=== PATIENT | female | born 1940 | race African-American/Black ===

== ENCOUNTER 2018-01-23 21:25 | Emergency (ER) | payer MEDICARE, OTHER ==
[~2018-01-23 21:25] MED LIST: Sodium Chloride 0.9% 1,000 ML BAG ONE; Sodium Chloride 0.9% 500 ML BAG ONE
--- NOTE | 2018-01-23 22:18 | RAD ---
PORTABLE AP CHEST X-RAY: 01/23/18 HISTORY: Fever. FINDINGS: Compared to study on 02/14/13. FINDINGS: The cardiac silhouette is magnified by projection. The pulmonary vasculature is within normal limits. Calcified granuloma is again seen at the left lung base. The lungs are otherwise clear. There has be en no interval change from prior study. IMPRESSION: No acute cardiopulmonary process. POS: [facility]
[2018-01-23 22:28] LABS: ALT (SGPT) 14 U/L (8-55); AST (SGOT) 19 U/L (5-34); Alkaline Phosphatase 92 U/L (40-150); Anion Gap 17 mmol/L (10-20); BUN (Urea Nitrogen) 21 mg/dL (9.8-20.1); Band 4 % (5-11); Bilirubin, Total 0.3 mg/dL (0.2-1.2); Calc. Creatinine Clearance 0 mL/min (70-130); Carbon Dioxide 25 mmol/L (23-31); Chloride 105 mmol/L (98-107); Estimated GFR-MDRD 57; Globulin 3.5 g/dL (2.4-3.5); Glucose 99 mg/dL (83-110); Hemoglobin 12.2 g/dL (12.0-16.0); Lymphocytes 7 % (21-51); MDiff Complete? YES; Mean Corpuscular HGB CONC 32.9 g/dL (32.0-36.0); Mean Corpuscular Hemoglobin 29.5 pg (27.0-31.0); Mean Corpuscular Volume 89.5 fL (78.0-98.0); Mean Platelet Volume 8.4 fL (7.4-10.4); Monocytes 4 % (0-10); Neutrophil 82 % (42-75); PLT Morphology Comment Appears Adequate; Platelet Count 233 thou/uL (130-400); Potassium 3.8 mmol/L (3.5-5.1); Protein, Total 7.5 g/dL (6.0-8.3); RBC Distribution Width 14.2 % (11.5-14.5); RBC Morphology Normal; Reactive Lymphocytes 3 % (0-10); Red Blood Cell (RBC) Count 4.13 mill/uL (4.20-5.40); Sodium 143 mmol/L (136-145); White Blood Cell (WBC) Count 15.5 thou/uL (4.8-10.8)
[2018-01-23 23:45] LABS: Bilirubin Negative (Negative); Blood, Urine Negative (Negative); Clarity Clear (Clear); Glucose, Urine (Dipstick) Negative (Negative); Leukocyte Small (Negative); Nitrite Negative (Negative); Protein, Urine (Dipstick) 30 mg/dL (Neg-Trace); Urobilinogen 0.2 mg/dL (0.2-1.0)
[2018-01-23 23:49] LABS: Bacteria/HPF Rare-Few HPF (None Seen); RBC/HPF 0-3 HPF (0-3); Squamous Epithelial 0-3 HPF (0-3)
== END 2018-01-23 23:55 | disposition short-term general hospital (02) ==
LOC: MADERS 21:25
DX: R65.10 Systemic inflammatory response syndrome (SIRS) of non-infectious origin without acute organ dysfunction (principal); R19.7 Diarrhea, unspecified; I10 Essential (primary) hypertension; Z79.82 Long term (current) use of aspirin; Z79.899 Other long term (current) drug therapy
CPT/HCPCS: 71045; 80053; 81003; 81015; 83605; 85025; 87040; 96360; 96361; J7050

== ENCOUNTER 2019-01-07 01:21 | Emergency (ER) | payer MEDICARE | END 2019-01-07 02:09 | disposition home or self-care (01) | LOC: MADERS 01:21 | DX: K64.4 Residual hemorrhoidal skin tags (principal); E78.5 Hyperlipidemia, unspecified; I10 Essential (primary) hypertension; Z86.73 Personal history of transient ischemic attack (TIA), and cerebral infarction without residual deficits; Z79.899 Other long term (current) drug therapy; Z79.82 Long term (current) use of aspirin | CPT/HCPCS: 99282 ==

== ENCOUNTER 2021-01-11 20:42 | Emergency (ER) | payer MEDICARE ==
[2021-01-11] MEDS ORDERED: Acetaminophen 500 MG TAB ONE (22:13)
[2021-01-11 22:37] LABS: ALT (SGPT) 19 U/L (8-55); AST (SGOT) 34 U/L (5-34); Albumin 3.8 g/dL (3.4-4.8); Alkaline Phosphatase 92 U/L (40-110); Anion Gap 21 mmol/L (10-20); BUN (Urea Nitrogen) 23 mg/dL (9.8-20.1); Bilirubin, Total 0.4 mg/dL (0.2-1.2); CK (CPK) 282 U/L (29-168); Calc. Creatinine Clearance 0 mL/min (70-130); Carbon Dioxide 27 mmol/L (23-31); Chloride 97 mmol/L (98-107); Globulin 3.2 g/dL (2.4-3.5); Glucose 120 mg/dL (83-110); Lipase 81 U/L (8-78); Magnesium 1.5 mg/dL (1.6-2.6); Potassium 3.1 mmol/L (3.5-5.1); Sodium 142 mmol/L (136-145)
[2021-01-11 22:39] LABS: Base Excess-Venous 2.4 mmol/L (-2.0 to 3.0); Bicarbonate (HCO3v) 27.5 mmol/L (22.0-28.0); Calcium, Ionized 1.02 mmol/L (1.15-1.33); Chloride 100 mmol/L (98-107); Hemoglobin - Calc 15.9 g/dL (12.0-16.0); Potassium 2.8 mmol/L (3.5-5.1); Sodium 142 mmol/L (138-145); T. Carbon Dioxide 28.8 mmol/L (22.0-28.0); vO2 Saturation-calc 59.4 % (60.0-85.0)
[2021-01-11 23:00] LABS: CKMB 2.3 ng/mL (0-6.6)
[2021-01-11 23:05] LABS: #Lymphocytes 1.3 thou/uL (1.20-3.40); #Monocytes 0.7 thou/uL (0.11-0.59); #Neutrophils 5.7 thou/uL (1.40-6.50); %Basophils 0.4 % (0.0-1.0); %Lymphocytes 16.7 % (21.0-51.0); %Monocytes 8.6 % (0.0-10.0); %Neutrophils 74.3 % (42.0-75.0); Hemoglobin 14.8 g/dL (12.0-16.0); Large Platelets SLIGHT; MDiff Complete? YES; Mean Corpuscular HGB CONC 30.6 g/dL (32.0-36.0); Mean Corpuscular Hemoglobin 27.7 pg (27.0-31.0); Mean Corpuscular Volume 90.4 fL (78.0-98.0); Mean Platelet Volume 12.1 fL (7.4-10.4); Platelet Count 186 thou/uL (130-400); RBC Distribution Width 13.5 % (11.5-14.5); RBC Morphology Normal; Red Blood Cell (RBC) Count 5.33 mill/uL (4.20-5.40); White Blood Cell (WBC) Count 7.7 thou/uL (4.8-10.8)
[2021-01-11 23:13] LABS: SARS-CoV-2 NAA Rapid Test DETECTED (NotDetected)
[2021-01-11] MEDS ORDERED: Sodium Chloride 0.9% 250 ML 250 ML ONE (23:14)
[2021-01-11] MEDS ORDERED: Magnesium 2 GM/50 ML BAG (IN WATER) ONE (23:38)
[2021-01-11] MEDS ORDERED: Magnesium Oxide 400 MG TAB ONE (23:38)
[2021-01-11] MEDS ORDERED: Potassium Chloride 20 MEQ TAB ONE (23:41)
[2021-01-12 01:49] LABS: Lactic Acid 2.7 mmol/L (0.5-2.2)
[2021-01-12] MEDS ORDERED: Sodium Chloride 0.9% 250 ML 250 ML ONE (02:30)
[2021-01-12] MEDS ORDERED: Ondansetron PF 4 MG/2 ML Vial ONE (03:23)
[2021-01-12 03:36] LABS: Troponin I 0.114 ng/mL (< 0.028)
== END 2021-01-12 06:13 | disposition short-term general hospital (02) ==
LOC: MADERS 20:42
DX: U07.1 COVID-19 (principal); R65.10 Systemic inflammatory response syndrome (SIRS) of non-infectious origin without acute organ dysfunction; R77.8 Other specified abnormalities of plasma proteins; E78.5 Hyperlipidemia, unspecified; I10 Essential (primary) hypertension; Z86.73 Personal history of transient ischemic attack (TIA), and cerebral infarction without residual deficits; Z79.82 Long term (current) use of aspirin; Z79.899 Other long term (current) drug therapy
CPT/HCPCS: 71045; 80053; 82330; 82550; 82553; 82803; 83605; 83690; 83735; 83880; 84484; 85025; 87040; 93005; 96374; J2405; J3475; J7050; U0002